=== PATIENT | female | born 1970 | race Caucasian/White ===

== ENCOUNTER 2019-06-16 15:03 | Emergency (ER) | payer OTHER, BC ==
[~2019-06-16] VITALS: Ht 167.6 cm; Wt 90.0 kg
[2019-06-16] MEDS ORDERED: CEPHALEXIN500 M1 PO (16:33)
[2019-06-16 16:47] VITALS: BP 131/84
== END 2019-06-16 16:53 | disposition home or self-care (01) | DRG 605 ==
LOC: ED 15:03
PROC: 0HQ0XZZ Repair Scalp Skin, External Approach (ICD-10-PCS; principal; 2019-06-16)
DX: S01.01XA Laceration without foreign body of scalp, initial encounter (principal); F17.210 Nicotine dependence, cigarettes, uncomplicated; W07.XXXA Fall from chair, initial encounter; Y92.239 Unspecified place in hospital as the place of occurrence of the external cause; Y99.0 Civilian activity done for income or pay

== ENCOUNTER 2019-06-24 15:27 | Emergency (ER) | payer OTHER, BC ==
[~2019-06-24] VITALS: Ht 152.4 cm; Wt 90.0 kg
[~2019-06-24 15:27] MED LIST: CEPHALEXIN500 M1 PO
[2019-06-24 16:12] VITALS: BP 116/80
== END 2019-06-24 16:16 | disposition home or self-care (01) | DRG 950 ==
LOC: ED 15:27
DX: S01.01XD Laceration without foreign body of scalp, subsequent encounter (principal); F17.210 Nicotine dependence, cigarettes, uncomplicated; X58.XXXD Exposure to other specified factors, subsequent encounter